=== PATIENT | female | born 1980 | race Caucasian/White ===

== ENCOUNTER 2025-07-01 17:25 | Emergency (ER) | payer OTHER ==
[~2025-07-01] VITALS: Ht 188 cm; Wt 99.2 kg
== END 2025-07-01 17:58 | disposition home or self-care (01) ==
LOC: ER 17:25
DX: Z48.814 Encounter for surgical aftercare following surgery on the teeth or oral cavity (principal); Z87.891 Personal history of nicotine dependence; Z88.0 Allergy status to penicillin
CPT/HCPCS: 99282